=== PATIENT | male | born 1955 | race Caucasian/White ===

== ENCOUNTER 2016-08-01 07:03 | Emergency (ER) | payer BC, OTHER ==
[~2016-08-01] VITALS: Ht 190.5 cm; Wt 123.0 kg
[~2016-08-01 07:03] MED LIST changes: -ACET-789 PO
--- OUTSIDE RECORDS SUMMARY | 2016-08-01 07:09 | XMS REPORT | Summary of Care ---
Author Author Kiara Burt R.N. Unknown Address Unknown Phone Unavailable Care Team Providers Care Polymer Chemist Name Role Phone Beverly Fischer M.D. Unavailable Unavailable Avinash Fischer PP Unavailable Unavailable Unavailable Functional Status Functional Status Health Issues Name Dates Details Functional status health issues are not documented Status: Cognitive Status Health Issues Name Dates Details Cognitive status health issues are not documented Status: Problems Name Dates Details Back Pain Status: Active Urinary tract infection (599.0, N39.0) Status: Active Rheumatoid arthritis (714.0, M06.9) Status: Active Tubular adenoma of colon (211.3, D12.6) Status: Active Encounter for screening for malignant neoplasm of colon (V76.51, Z12.11) Status: Active Abscess of fourth finger, right (681.00, L02.511) Status: Active Cyst of finger (709.8, L98.8) Status: Active Pre-op evaluation (V72.84, Z01.818) Status: Active Ketonuria (791.6, R82.4) Status: Active Glucosuria (791.5, R81) Status: Active Type 2 diabetes mellitus (250.00, E11.9) Status: Active Hypercholesterolemia (272.0, E78.0) Status: Active Hip pain (719.45, M25.559) Status: Active Osteoarthrosis (715.90, M19.90) Status: Active Medications Name Dates Details Simvastatin 80 MG Oral Tablet TAKE ONE TABLET BY MOUTH ONCE DAILY Quantity: 90 Refills: 3 Avinash Fischer M.D. Started 13-Jan-2008 ActiveOrencia 250 MG Intravenous Solution Reconstituted USE DIRECTED. Quantity: 1 Refills: 0 Avinash Fischer M.D. Started 03-Jun-2009 Active1 EA Vial MetFORMIN HCl ER 500 MG Oral Tablet Extended Release 24 Hour take two tablets by mouth twice daily Quantity: 120 Refills: 6 Avinash Fischer M.D. Started 20-Jan-2013 ActiveBayer Contour Next Test In Vitro Strip {V} TEST {F} {R} TWICE A DAY. Quantity: 1 Refills: 4 Avinash Fischer M.D. Started 29-Jan-2013 [id number] EA Box Aspirin 81 MG Oral Tablet TAKE 1 TABLET DAILY. Quantity: 30 Refills: 0 Avinash Fischer M.D. Started 19-Jan-2014 ActiveGlimepiride 4 MG Oral Tablet TAKE ONE TABLET BY MOUTH ONCE DAILY Quantity: 90 Refills: 0 Avinash Fischer M.D. Started 22-Apr-2014 Active Allergies and Adverse Reactions Name Dates Details No Known Drug Allergies Status: Active Past Medical History Name Dates Details History of hyperlipidemia (V12.29, Z86.39) Status: Resolved History of Umbilical hernia (553.1, K42.9) Status: Resolved Procedures Procedure Dates Details History of Complete Colonoscopy For Polyp Removal Completed:06-Jul-2011 History of Complete Colonoscopy Completed:31-Jul-2012 Comprehensive Metabolic Panel 1212 Ordered:21-Dec-2014 HEMOGLOBIN A1C 3507 Ordered:21-Dec-2014 LDL, MEASURED 1605 Ordered:21-Dec-2014 Quant Microalbumin 1106 Ordered:21-Dec-2014 Immunization Name Dates Details Influenza Administered on:28-Jan-2012 Fluzone Quadrivalent 0.5 ML Intramuscular Suspension Administered on:03-Feb-2013 Tdap (Adacel) Lot #: [id number] Administered on:20-Dec-2014 Prevnar 13 Intramuscular Suspension Lot #: [id number] Administered on:20-Dec-2014 Family History Unknown Family Member Name Dates Details Family history of Coronary Artery Disease Comments: Family History Status: Active Father Name Dates Details Family history of Acute Myocardial Infarction (V17.3) Status: Active Social History Name Dates Details Smoking StatusNever smoker Vital Signs Date Test Result Details No Known Vitals to report Results Date Description Value Details Results not documented Plan of Care Planned Observations Name Dates Details Planned Goals not documented Goal Planned Encounters Appointment; Provider: Avinash Fischer On 26-Apr-2015 09:15 Appointment; Provider: David Byrd On 31-Jul-2012 08:00 Appointment; Provider: David Byrd On 06-Jul-2011 09:30 Instructions Instructions not documented Encounters Appointment; Avinash Fischer Encounter Diagnosis: Problem not documented On 20-Dec-2014 09:15 Appointment; Avinash Fischer Encounter Diagnosis: Problem not documented On 23-Nov-2014 08:45 Appointment; Avinash Fischer Encounter Diagnosis: Problem not documented On 21-Jul-2014 08:45 Appointment; Avinash Fischer Encounter Diagnosis: Problem not documented On 22-Apr-2014 13:00 Appointment; Saleem Downey Encounter Diagnosis: Problem not documented On 11-Feb-2014 09:00 Appointment; Saleem Downey Encounter Diagnosis: Problem not documented On 27-Jan-2014 08:30 Appointment; Avinash Fischer Encounter Diagnosis: Problem not documented On 19-Jan-2014 13:00 Appointment; Saleem Downey Encounter Diagnosis: Problem not documented On 14-Jan-2014 14:30 Appointment; Kirill Hedrick Encounter Diagnosis: Problem not documented On 08-Jan-2014 15:15 Appointment; Avinash Fischer Encounter Diagnosis: Problem not documented On 07-May-2013 09:15 Appointment; Avinash Fischer Encounter Diagnosis: Problem not documented On 09-Mar-2013 08:45 Appointment; Sharee Richter Encounter Diagnosis: Problem not documented On 17-Feb-2013 10:30
[2016-08-01] MEDS ORDERED: ACET-789 PO (07:27)
[2016-08-01 08:01] LABS: BASOPHILS % (AUTO) 0 % (0-2); EOSINOPHILS # (AUTO) 0.2 10^3uL; EOSINOPHILS % (AUTO) 3 % (0-4); MEAN CORPUSCULAR HEMOGLOBIN 30.5 PG (26.0-34.0); MEAN CORPUSCULAR HGB CONC 32.9 g/dL (31.0-37.0); MEAN CORPUSCULAR VOLUME 93 FL (80-100); MEAN PLATELET VOLUME 11.7 FL (6.0-9.5); MONOCYTES # (AUTO) 0.9 X10^3; MONOCYTES % (AUTO) 15 % (3-11); NEUTROPHILS # (AUTO) 4.2 X10^3; NEUTROPHILS % (AUTO) 66 % (51-67); PLATELET COUNT 153 10^3uL (150-450); WHITE BLOOD COUNT 6.36 10^3uL (4.0-11.0)
--- NOTE | 2016-08-01 08:05 | Diagnostic Imaging Report ---
INDICATION: Syncope. FINDINGS: Single view examination of the chest fails to reveal evidence of active parenchymal pathology or pleural effusion. The cardiac silhouette is normal. IMPRESSION: Negative chest. Dictated by: Dictated on workstation # [id number]
[2016-08-01 08:38] LABS: ALBUMIN 4.2 g/dL (3.4-5.0); ANION GAP 15.8 MEQ/L (3-15); CALCULATED IONIZED CALCIUM 4.1 mg/dL (3.8-4.6); TOTAL PROTEIN 7.3 g/dL (6.4-8.5)
--- NOTE | 2016-08-01 08:40 | NUR ---
Patient rounds, no complaints voiced.
--- NOTE | 2016-08-01 09:25 | NUR ---
DR HAND, PCP, PAGED PER DR COKER. DR COKER SPEAKING WITH HIM AT THIS TIME.
[2016-08-01 09:50] VITALS: BP 116/82
== END 2016-08-01 09:52 | disposition home or self-care (01) ==
LOC: EDUNIT# 07:03 → ED 07:05
DX: R55 Syncope and collapse (principal); B02.9 Zoster without complications; I45.10 Unspecified right bundle-branch block
CPT/HCPCS: 36415; 71010; 80053; 84484; 85025; 93005; 93010; 99283; 99284

== ENCOUNTER → 2016-08-01 | Outpatient (CLI) | payer BC ==
[~2016-08-01] MED LIST: ABAT125S SQ; ACET-789 PO; ASPI-586 PO; MECL-105 PO; METF500T4 PO; PRED20TA PO; SIMV40TA2 PO; [UNRECOGNIZED DRUG - REMARK] PO
== END ==
LOC: EMS 07:00
PROVIDERS: ATTEND Emergency Medicine
DX: R55 Syncope and collapse (principal)